=== PATIENT | female | born 1970 | race Caucasian/White ===

== ENCOUNTER 2022-09-10 17:40 | Emergency (ER) | payer MEDICAID, OTHER ==
[~2022-09-10] VITALS: Ht 165.1 cm; Wt 65.0 kg
[2022-09-10] MEDS ORDERED: LEVETIRACETAM 500MG PREMIX 100 ML IV ONE (22:00)
[2022-09-10] MEDS ORDERED: OLANZAPINE 10 MG/VIAL IM ONE (22:00)
[2022-09-10] MEDS ORDERED: LORAZEPAM 0.5MG TABLET PO ONE (23:00)
[2022-09-11] MEDS ORDERED: MIDAZOLAM HCL 2 MG/2 ML VIAL IM ONE ×2 (00:30→05:45)
[2022-09-11 01:35] LABS: BASOPHILS % 0.4 % (0.0-2.0); EOSINOPHILS % 1.2 % (0.0-5.0); HEMOGLOBIN. 11.6 g/dL (12.0-16.0); LYMPHOCYTES % 30.7 % (20.0-50.0); MEAN CORPUSCULAR HEMOGLOBIN 33.1 pg (28.0-32.0); MEAN CORPUSCULAR VOLUME 96.9 fL (81.0-99.0); MEAN PLATELET VOLUME 7.8 fl (7.4-10.4); MONOCYTES % 9.4 % (2.0-8.0); NEUTROPHILS % 58.3 % (40.0-76.0); PLATELET 189 x1000/uL (130-400); RED CELL DISTRIBUTION WIDTH 12.2 % (11.6-14.6)
[2022-09-11 01:40] LABS: CHLORIDE 108 mEq/L (98-107)
[2022-09-11] MEDS ORDERED: LEVETIRACETAM 500MG PREMIX 100 ML IV NR (02:45)
[2022-09-11] MEDS ORDERED: LAMO100T65 MT (06:41)
[2022-09-11 07:46] VITALS: BP 137/79
== END 2022-09-11 08:00 | disposition home or self-care (01) ==
LOC: ER 17:40
DX: R56.9 Unspecified convulsions (principal); F79 Unspecified intellectual disabilities
CPT/HCPCS: 36415; 70450; 80053; 83735; 85025; 96365; 96372; 99285; J1953; J2250; J3490; Z7610